=== PATIENT | female | born 2000 | race Hispanic/Latino ===

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

== ENCOUNTER 2022-03-06 12:27 | Emergency (ER) | payer BC, OTHER ==
[~2022-03-06] VITALS: Ht 149.9 cm; Wt 68.0 kg
[2022-03-06 13:06] LABS: BASOPHILS % (AUTO) 0.5 % (0.0-5.0); EOSINOPHILS % (AUTO) 0.6 % (0.0-8.0); HEMATOCRIT 41.8 % (36-48); LYMPHOCYTES % (AUTO) 10.4 % (21.0-51.0); MEAN CORPUSCULAR HEMOGLOBIN 28.8 pg (27.0-33.0); MEAN CORPUSCULAR HGB CONC 32.5 g/dL (32.0-36.0); MEAN CORPUSCULAR VOLUME 88.4 fL (79-99); MONOCYTES % (AUTO) 6.2 % (3.0-13.0); NEUTROPHILS % (AUTO) 81.8 % (40.0-77.0); PLATELET COUNT (AUTO) 311 K/uL (130-400); RED BLOOD CELL COUNT(AUTO) 4.73 MIL/uL (4.00-5.50); RED CELL DISTRIBUTION WIDTH 12.7 % (11.0-15.5); WHITE BLOOD COUNT (AUTO) 12.6 K/uL (4.8-10.8)
[2022-03-06 13:26] LABS: CREATININE 0.5 mg/dL (0.5-1.5); POTASSIUM 4.1 mmol/L (3.5-5.1)
[2022-03-06 13:35] LABS: ALBUMIN 4.2 g/dL (3.5-5.0); BILIRUBIN,TOTAL 0.6 mg/dL (0.2-1.0); TOTAL PROTEIN, SERUM 7.8 g/dL (6.0-8.3)
[2022-03-06 13:45] VITALS: BP 130/81
[2022-03-06 13:45] LABS: APPEARANCE,URINE TURBID (CLEAR); BILIRUBIN,URINE MODERATE (NEGATIVE); COLOR,URINE DARK YELLOW (YELLOW); GLUCOSE, URINE (UA) NEGATIVE (NEGATIVE); KETONES,URINE >=80 mg/dL (NEGATIVE); LEUKOCYTE ESTERASE ,URINE NEGATIVE (NEGATIVE); NITRATE,URINE NEGATIVE (NEGATIVE); OCCULT BLOOD,URINE LARGE (NEGATIVE); PH,URINE 5.5 (5.0-8.0); PROTEIN,URINE 100 mg/dL (NEGATIVE)
[2022-03-06] MEDS ORDERED: ONDANSETRON 4MG TABLET PO ONE (14:00)
[2022-03-06] MEDS ORDERED: DICYCLOMINE HCL 10 MG/5 ML ML PO ONE (14:00)
[2022-03-06] MEDS ORDERED: LIDOCAINE HCL 2% VISCOUS 15 ML UDCUP PO ONE (14:00)
[2022-03-06] MEDS ORDERED: FAMOTIDINE 20MG TAB PO ONE (14:00)
[2022-03-06] MEDS ORDERED: MAG/ALUM/SIMETH 30 ML UDCUP PO ONE (14:00)
[2022-03-06 14:16] LABS: HCG,QUAL RESULT NEGATIVE (NEGATIVE)
[2022-03-06 14:17] LABS: RBC,URINE TNTC /HPF (0-1)
[2022-03-06 14:18] LABS: BACTERIA,URINE Few /HPF (None Seen); SQUAMOUS EPITHELIAL CELL,UR Rare /HPF (0-2)
[2022-03-06] MEDS ORDERED: DICY20TA2 PO (15:08)
[2022-03-06] MEDS ORDERED: ONDA4TAB10 PO (15:08)
[2022-03-06 21:28] LABS: HEPATITIS A IGM ANTIBODY Non-Reactive (Negative); HEPATITIS B CORE IGM ANTIBODY Non-Reactive (Negative); HEPATITIS B SURFACE ANTIGEN Non-Reactive (Negative); HEPATITIS C ANTIBODY Non-Reactive (NEGATIVE)
== END 2022-03-06 15:22 | disposition home or self-care (01) ==
LOC: EDH 12:27
DX: I82.0 Budd-Chiari syndrome (principal); R10.10 Upper abdominal pain, unspecified
CPT/HCPCS: 36415; 76705; 80053; 80074; 81001; 81025; 83690; 85025; 99284; Q0162

== ENCOUNTER → 2023-09-12 | Outpatient (CLI) | payer BC, OTHER ==
[~2023-09-12] MED LIST: DICY20TA2 PO; ONDA4TAB10 PO
== END | disposition home or self-care (01) ==
LOC: RAH 10:16
PROVIDERS: ATTEND Internal Medicine
DX: R93.2 Abnormal findings on diagnostic imaging of liver and biliary tract (principal); R11.0 Nausea
CPT/HCPCS: 76705

== ENCOUNTER → 2023-10-05 | Outpatient (CLI) | payer BC, OTHER | END | disposition home or self-care (01) | LOC: RAH 11:04 | PROVIDERS: ATTEND Internal Medicine | DX: R11.0 Nausea (principal) | CPT/HCPCS: 78264; A9541 ==